=== PATIENT | female | born 1985 | race Caucasian/White ===

== ENCOUNTER → 2024-04-27 07:01 | Outpatient (CLI) | payer OTHER, SELFPAY ==
--- NOTE | 2024-04-27 07:05 | DI.US.S_ITS ---
PROCEDURE: US PELVIC COMPLETE INDICATIONS: Excessive and frequent menstruation with regular c TECHNIQUE: Real-time scanning was performed of the pelvic organs, with image documentation. Additional endovaginal scanning was necessary due to incomplete visualization of the adnexal and endometrial structures by transabdominal scanning. COMPARISON: None. FINDINGS: Uterus: Uterus is retroverted and normal in size at 7.8 x 5.6 x 6.2 cm. The myometrium is homogeneous. The endometrium measures 9.7 mm combined thickness. Ovaries: The right ovary measures 1.4 x 3.4 x 1.5 cm, with a calculated ovarian volume of 3.6 cc. The left ovary measures 2.4 x 4.5 x 2.3 cm, with a calculated ovarian volume of 12.9 cc. Left ovarian simple cyst measuring 2 cm. The ovaries have a normal sonographic appearance. Less than 12 follicles can be seen in each ovary. No adnexal masses are seen. Other: No pathologic free abdominal or pelvic fluid. IMPRESSION: Normal appearance of the uterus and ovaries. Endometrium is normal in thickness for a premenopausal female. We strive to produce accurate, complete, and clear reports of imaging services. To assist us in improving patient care, this report was composed using standard report templates and voice recognition software. Therefore, it may contain abnormal punctuation, insertions and/or omissions. Occasional wrong-word or sound-alike substitutions may occur. Though we review the report and make efforts to correct it, we do recommend that the report be read carefully in proper context to recognize any text inaccuracies. Dictated by: Beka Kay M.D. on 04/27/2024 at 8:33 Approved by: Beka Kay M.D. on 04/27/2024 at 8:34
== END ==
PROVIDERS: Referring Provider Nurse Practitioner Family; Visit Provider Nurse Practitioner Family
DX: N92.0 Excessive and frequent menstruation with regular cycle (principal); N83.292 Other ovarian cyst, left side
CPT/HCPCS: 76830; 76856